=== PATIENT | male | born 1975 | race Two or more races ===

== ENCOUNTER 2020-04-09 14:27 | Inpatient (IN) | payer SELFPAY ==
[~2020-04-09] VITALS: Ht 172.7 cm; Wt 168.9 kg
[2020-04-09 15:08] LABS: Basophils # (auto) 0.1 10 ^3/uL (0-0.2); Basophils % (auto) 1.2 % (0.0-2.0); Eosinophils # (auto) 0.1 10 ^3/uL (0-0.8); Hemoglobin 14.5 g/dL (13.5-17.5); Lymphocytes # (auto) 1.9 10 ^3/uL (0.4-5.4); Lymphocytes % (auto) 20.3 % (10.0-50.0); Mean Corpuscular Hemoglobin 28.1 pg (28.0-32.0); Mean Corpuscular Hgb Conc. 32.3 g/dL (32.0-36.0); Monocytes # (auto) 0.9 10 ^3/uL (0-1.3); Neutrophils # (auto) 6.5 10 ^3/uL (1.6-8.6); Neutrophils % (auto) 68.5 % (37.0-80.0); Nucleated Red Blood Cells % 0.1 %; Platelet Count (auto) 286 10^3/uL (140-450); Red Blood Cells 5.17 10^6/uL (4.5-5.90); Red Cell Distribution Width 14.7 % (11.8-14.3); White Blood Cell 9.6 10^3/uL (4.4-10.8)
[2020-04-09] MEDS ORDERED: InsuLIN REG 1unit/0.01ml Soln (100units/ml) IV ONE (15:30)
[2020-04-09] MEDS ORDERED: SODIUM CHLORIDE 0.9% 1,000 ML IV SCH ×3 (15:30→21:30)
[2020-04-09] MEDS ORDERED: DEXTROSE (50%) 50ML SYRG IV PRN (15:30)
[2020-04-09 15:49] LABS: Albumin 3.1 g/dL (3.4-5.0); Anion Gap 1 (5-15); Blood Urea Nitrogen 19 mg/dL (7-18); Calcium 8.2 mg/dL (8.5-10.1); Carbon Dioxide 37 mmol/L (21-32); Chloride 102 mmol/L (98-107); Glucose 132 mg/dL (74-106); Potassium 4.1 mmol/L (3.5-5.1); Sodium 140 mmol/L (136-145)
[2020-04-09 15:54] LABS: Amylase 30 U/L (25-115); Lipase 99 U/L (73-393)
[2020-04-09 15:55] LABS: Magnesium 2.4 mg/dL (1.6-2.6); Phosphorus 4.5 mg/dL (2.5-4.90)
[2020-04-09 15:56] LABS: Alanine Aminotransferase 186 U/L (16-61); Alkaline Phosphatase 79 U/L (45-117); Aspartate Aminotransferase 90 U/L (15-37); BUN/Creatinine Ratio 21.8; Bilirubin, Total 0.7 mg/dL (0.2-1.0); GFR African American 124 mL/min; GFR Non-African American 102 mL/min; Total Protein 6.9 g/dL (6.4-8.2)
[2020-04-09] MEDS ORDERED: AZITHROMYCIN 500MG/ 250ML 250 ML IV ONE (16:30)
[2020-04-09] MEDS ORDERED: PIPERACILLIN-TAZOB 3.375GM 100 ML IV ONE (16:30)
[2020-04-09] MEDS ORDERED: ACCU-CHEK COMFORT CURVE STRIP VI SCH (16:30)
[2020-04-09] MEDS ORDERED: FUROSEMIDE 40 MG/4 ML VIAL IV ONE (17:15)
[2020-04-09] MEDS ORDERED: NITROGLYCERIN 0.4 MG SL TAB SL PRN (17:15)
[2020-04-09] MEDS ORDERED: ACETAMINOPHEN 500 MG TAB PO PRN (17:15)
[2020-04-09] MEDS ORDERED: MORPHINE SULF INJ 2 MG/ML SYRINGE 1ML IV PRN ×2 (17:15)
[2020-04-09] MEDS ORDERED: HYDROcodone-ACET 5/325MG TAB PO PRN (17:15)
[2020-04-09] MEDS ORDERED: hydrALAZINE HCL 20 MG/ML VL IV PRN (17:15)
[2020-04-09] MEDS ORDERED: ONDANSETRON HCL 4 MG/2 ML VIAL IV PRN (17:15)
[2020-04-09 19:10] LABS: Urine Bacteria NONE SEEN /hpf (None Seen); Urine Blood Negative /uL (Negative); Urine Mucus FEW (None Seen); Urine Specific Gravity 1.011 (1.001-1.035); Urine WBC 1 /hpf (0 - 3)
[2020-04-09] MEDS: METOPROLOL TARTRATE 25 MG TAB PO SCH ×2 (22:00→23:00)
[2020-04-09] MEDS: ATORVASTATIN 20 MG TAB PO SCH (22:00)
[2020-04-10 05:42] VITALS: BP 140/94
[2020-04-10 06:17] VITALS: BP 140/94
[2020-04-10 08:19] VITALS: BP 128/79
[2020-04-10] MEDS: ASPirin-EC 81 mg tab PO SCH (09:41)
[2020-04-10] MEDS: FAMOTIDINE 20 MG TAB PO SCH (09:41)
[2020-04-10] MEDS: LISINOPRIL 10 MG TAB PO SCH (09:42)
[2020-04-10 10:18] LABS: Basophils # (auto) 0 10 ^3/uL (0-0.2); Basophils % (auto) 0.6 % (0.0-2.0); Eosinophils # (auto) 0.1 10 ^3/uL (0-0.8); Eosinophils % (auto) 0.6 % (0.0-7.0); Hematocrit 45.9 % (41.0-53.0); Hemoglobin 14.8 g/dL (13.5-17.5); Lymphocytes # (auto) 0.8 10 ^3/uL (0.4-5.4); Lymphocytes % (auto) 8.8 % (10.0-50.0); Mean Corpuscular Hemoglobin 28.4 pg (28.0-32.0); Mean Corpuscular Hgb Conc. 32.3 g/dL (32.0-36.0); Monocytes # (auto) 0.6 10 ^3/uL (0-1.3); Monocytes % (auto) 6.4 % (0.0-12.0); Neutrophils # (auto) 7.2 10 ^3/uL (1.6-8.6); Neutrophils % (auto) 83.6 % (37.0-80.0); Nucleated Red Blood Cells % 0.1 %; Platelet Count (auto) 296 10^3/uL (140-450); Red Blood Cells 5.21 10^6/uL (4.5-5.90); Red Cell Distribution Width 14.8 % (11.8-14.3); White Blood Cell 8.7 10^3/uL (4.4-10.8)
[2020-04-10 10:42] LABS: Calcium 8.4 mg/dL (8.5-10.1)
[2020-04-10 10:43] LABS: BUN/Creatinine Ratio 15.5
[2020-04-10] MEDS ORDERED: POTASSIUM CHL 10 Meq TABLET PO ONE (13:00)
[2020-04-10] MEDS ORDERED: FUROSEMIDE 40 MG/4 ML VIAL IV ONE (13:00)
[2020-04-10 13:37] LABS: Alcohol, Urine < 3.0 mg/dL (0-10); Amphetamine Screen, Urine NEGATIVE (NEGATIVE); Barbiturate Scree,Urine NEGATIVE (NEGATIVE); Benzodiazephine Screen, Urine NEGATIVE (NEGATIVE); Cannabinoid Screen, Urine NEGATIVE (NEGATIVE); Cocaine Screen, Urine NEGATIVE (NEGATIVE); Opiate Scree,Urine NEGATIVE (NEGATIVE); Phencyclidine Screen, Urine NEGATIVE (NEGATIVE)
[2020-04-10 15:40] VITALS: BP 156/88
[2020-04-10] MEDS: FUROSEMIDE 40 MG/4 ML VIAL IV SCH (17:51)
[2020-04-10 18:01] LABS: Urine Bacteria NONE SEEN /hpf (None Seen); Urine Blood Negative /uL (Negative); Urine Mucus FEW (None Seen); Urine Specific Gravity 1.021 (1.001-1.035); Urine WBC 1 /hpf (0 - 3)
[2020-04-10] MEDS: ATORVASTATIN 20 MG TAB PO SCH (23:55)
[2020-04-10] MEDS: POTASSIUM CHL 10 Meq TABLET PO SCH (23:55)
[2020-04-10] MEDS: METOPROLOL TARTRATE 25 MG TAB PO SCH (23:55)
[2020-04-11 05:00] VITALS: BP 110/57
[2020-04-11] MEDS: FUROSEMIDE 40 MG/4 ML VIAL IV SCH ×2 (05:47→18:00)
[2020-04-11] MEDS: IPRATROPIUM BROM 0.5 MG/2.5ML INH SOL NEB PRN (07:33)
[2020-04-11] MEDS: ALBUTEROL SULF 2.5 MG/0.5ML(0.5%) NEB SOLN NEB PRN (07:33)
[2020-04-11 08:00] VITALS: BP 128/77
[2020-04-11] MEDS: ASPirin-EC 81 mg tab PO SCH (09:40)
[2020-04-11] MEDS: POTASSIUM CHL 10 Meq TABLET PO SCH ×2 (09:43→22:00)
[2020-04-11] MEDS: FAMOTIDINE 20 MG TAB PO SCH (09:44)
[2020-04-11] MEDS: METOPROLOL TARTRATE 25 MG TAB PO SCH ×2 (09:46→22:00)
[2020-04-11] MEDS: LISINOPRIL 10 MG TAB PO SCH (10:16)
[2020-04-11 16:00] VITALS: BP 103/53
[2020-04-11 21:38] VITALS: BP 129/75
[2020-04-11] MEDS: ATORVASTATIN 20 MG TAB PO SCH (22:00)
[2020-04-12 05:13] VITALS: BP 130/94
[2020-04-12 05:59] LABS: Calcium 8.3 mg/dL (8.5-10.1); Potassium 4.2 mmol/L (3.5-5.1)
[2020-04-12 06:03] LABS: BUN/Creatinine Ratio 16.9
[2020-04-12] MEDS: FUROSEMIDE 40 MG/4 ML VIAL IV SCH ×2 (06:04→18:07)
[2020-04-12 08:00] VITALS: BP 113/59
[2020-04-12] MEDS: POTASSIUM CHL 10 Meq TABLET PO SCH ×2 (09:31→22:35)
[2020-04-12] MEDS: ASPirin-EC 81 mg tab PO SCH (09:31)
[2020-04-12] MEDS: METOPROLOL TARTRATE 25 MG TAB PO SCH ×2 (09:32→22:36)
[2020-04-12] MEDS: FAMOTIDINE 20 MG TAB PO SCH (09:32)
[2020-04-12] MEDS: LISINOPRIL 10 MG TAB PO SCH (09:33)
[2020-04-12 17:00] VITALS: BP 119/60
[2020-04-12 22:00] VITALS: BP 120/78
[2020-04-12] MEDS: ATORVASTATIN 20 MG TAB PO SCH (22:36)
[2020-04-13 05:00] VITALS: BP 128/80
[2020-04-13] MEDS: FUROSEMIDE 40 MG/4 ML VIAL IV SCH ×2 (05:57→18:35)
[2020-04-13] MEDS: IPRATROPIUM BROM 0.5 MG/2.5ML INH SOL NEB PRN (06:30)
[2020-04-13] MEDS: ALBUTEROL SULF 2.5 MG/0.5ML(0.5%) NEB SOLN NEB PRN (06:30)
[2020-04-13 07:02] LABS: Basophils # (auto) 0 10 ^3/uL (0-0.2); Basophils % (auto) 0.6 % (0.0-2.0); Eosinophils # (auto) 0.3 10 ^3/uL (0-0.8); Eosinophils % (auto) 3.6 % (0.0-7.0); Hematocrit 45.1 % (41.0-53.0); Hemoglobin 14.8 g/dL (13.5-17.5); Lymphocytes # (auto) 1.4 10 ^3/uL (0.4-5.4); Lymphocytes % (auto) 19.9 % (10.0-50.0); Mean Corpuscular Hemoglobin 28.2 pg (28.0-32.0); Mean Corpuscular Hgb Conc. 32.9 g/dL (32.0-36.0); Mean Corpuscular Volume 85.9 fL (80.0-100.0); Monocytes # (auto) 0.7 10 ^3/uL (0-1.3); Monocytes % (auto) 10.1 % (0.0-12.0); Neutrophils # (auto) 4.7 10 ^3/uL (1.6-8.6); Neutrophils % (auto) 65.8 % (37.0-80.0); Nucleated Red Blood Cells % 0.1 %; Platelet Count (auto) 261 10^3/uL (140-450); Red Blood Cells 5.26 10^6/uL (4.5-5.90); Red Cell Distribution Width 14.1 % (11.8-14.3); White Blood Cell 7.2 10^3/uL (4.4-10.8)
[2020-04-13 07:30] VITALS: BP 113/66
[2020-04-13 07:35] LABS: Potassium 3.6 mmol/L (3.5-5.1)
[2020-04-13 07:37] LABS: BUN/Creatinine Ratio 16.3
[2020-04-13] MEDS: POTASSIUM CHL 10 Meq TABLET PO SCH ×2 (09:44→22:34)
[2020-04-13] MEDS: ASPirin-EC 81 mg tab PO SCH (09:44)
[2020-04-13] MEDS: FAMOTIDINE 20 MG TAB PO SCH (09:45)
[2020-04-13] MEDS: METOPROLOL TARTRATE 25 MG TAB PO SCH ×2 (09:47→22:35)
[2020-04-13] MEDS: LISINOPRIL 10 MG TAB PO SCH (09:48)
[2020-04-13 16:48] VITALS: BP 109/76
[2020-04-13 22:00] VITALS: BP 117/74
[2020-04-13] MEDS: ATORVASTATIN 20 MG TAB PO SCH (22:34)
[2020-04-14 05:00] VITALS: BP 138/68
[2020-04-14] MEDS: FUROSEMIDE 40 MG/4 ML VIAL IV SCH (05:42)
[2020-04-14] MEDS: ALBUTEROL SULF 2.5 MG/0.5ML(0.5%) NEB SOLN NEB PRN (06:35)
[2020-04-14] MEDS: IPRATROPIUM BROM 0.5 MG/2.5ML INH SOL NEB PRN (06:35)
[2020-04-14 08:00] VITALS: BP 135/79
[2020-04-14] MEDS: POTASSIUM CHL 10 Meq TABLET PO SCH (11:12)
[2020-04-14] MEDS: ASPirin-EC 81 mg tab PO SCH (11:12)
[2020-04-14] MEDS: METOPROLOL TARTRATE 25 MG TAB PO SCH (11:13)
[2020-04-14] MEDS: FAMOTIDINE 20 MG TAB PO SCH (11:14)
[2020-04-14] MEDS: LISINOPRIL 10 MG TAB PO SCH (11:14)
[2020-04-14 11:59] VITALS: BP 135/79
[2020-04-14 16:00] VITALS: BP 118/71
== END 2020-04-14 18:05 | disposition home or self-care (01) | DRG 189 ==
LOC: ER 14:27 → TELE 14:28 → TELE-CENTR 04-10 03:54
PROVIDERS: ADMIT Nurse Practitioner Acute Care; ATTEND Internal Medicine
PROC: 5A09357 Assistance with Respiratory Ventilation, Less than 24 Consecutive Hours, Continuous Positive Airway Pressure (ICD-10-PCS; principal; 2020-04-10)
PROC: 5A09357 Assistance with Respiratory Ventilation, Less than 24 Consecutive Hours, Continuous Positive Airway Pressure (ICD-10-PCS; 2020-04-11)
PROC: 5A09357 Assistance with Respiratory Ventilation, Less than 24 Consecutive Hours, Continuous Positive Airway Pressure (ICD-10-PCS; 2020-04-12)
PROC: 5A09357 Assistance with Respiratory Ventilation, Less than 24 Consecutive Hours, Continuous Positive Airway Pressure (ICD-10-PCS; 2020-04-13)
DX: J96.01 Acute respiratory failure with hypoxia (principal); N17.0 Acute kidney failure with tubular necrosis; E66.2 Morbid (severe) obesity with alveolar hypoventilation; E87.4 Mixed disorder of acid-base balance; Z68.43 Body mass index [BMI] 50.0-59.9, adult; J96.02 Acute respiratory failure with hypercapnia; I12.9 Hypertensive chronic kidney disease with stage 1 through stage 4 chronic kidney disease, or unspecified chronic kidney disease; E11.22 Type 2 diabetes mellitus with diabetic chronic kidney disease; E11.65 Type 2 diabetes mellitus with hyperglycemia; Z20.822 Contact with and (suspected) exposure to COVID-19; E88.09 Other disorders of plasma-protein metabolism, not elsewhere classified; N18.9 Chronic kidney disease, unspecified; Z83.3 Family history of diabetes mellitus; Z91.14 Patient's other noncompliance with medication regimen
CPT/HCPCS: 36415; 36600; 71045; 74176; 80048; 80053; 80061; 80307; 81001; 82010; 82150; 82805; 82962; 83036; 83605; 83690; 83735; 83880; 83930; 84100; 84443; 84484; 85025; 85379; 86141; 87040; 87426; 93005; 93306; 94640; 94660; 96365; 96368; 96375; 97163; 99291; G0378; J2543

== ENCOUNTER 2020-08-03 15:57 | Emergency (ER) | payer MEDICAID ==
[~2020-08-03] VITALS: Ht 170.2 cm; Wt 163.3 kg
[2020-08-03 17:17] LABS: Basophils # (auto) 0.1 10 ^3/uL (0-0.2); Basophils % (auto) 1.1 % (0.0-2.0); Eosinophils # (auto) 0.2 10 ^3/uL (0-0.8); Eosinophils % (auto) 2.1 % (0.0-7.0); Hematocrit 46.4 % (41.0-53.0); Hemoglobin 15.2 g/dL (13.5-17.5); Lymphocytes # (auto) 2.3 10 ^3/uL (0.4-5.4); Lymphocytes % (auto) 20.3 % (10.0-50.0); Mean Corpuscular Hemoglobin 28.8 pg (28.0-32.0); Mean Corpuscular Hgb Conc. 32.8 g/dL (32.0-36.0); Mean Corpuscular Volume 87.9 fL (80.0-100.0); Monocytes # (auto) 0.7 10 ^3/uL (0-1.3); Monocytes % (auto) 6.2 % (0.0-12.0); Neutrophils % (auto) 70.3 % (37.0-80.0); Nucleated Red Blood Cells % 0.2 %; Platelet Count (auto) 243 10^3/uL (140-450); Red Blood Cells 5.28 10^6/uL (4.5-5.90); Red Cell Distribution Width 16.5 % (11.8-14.3); White Blood Cell 11.4 10^3/uL (4.4-10.8)
[2020-08-03 17:24] LABS: Albumin 3.5 g/dL (3.4-5.0); Anion Gap 6 (5-15); Blood Urea Nitrogen 10 mg/dL (7-18); Carbon Dioxide 34 mmol/L (21-32); Chloride 102 mmol/L (98-107); Glucose 152 mg/dL (74-106); Potassium 4.1 mmol/L (3.5-5.1); Sodium 142 mmol/L (136-145)
[2020-08-03 17:30] LABS: Alanine Aminotransferase 33 U/L (16-61); Alkaline Phosphatase 80 U/L (45-117); Aspartate Aminotransferase 17 U/L (15-37); BUN/Creatinine Ratio 10.4; Bilirubin, Total 0.2 mg/dL (0.2-1.0); GFR African American 110 mL/min; GFR Non-African American 91 mL/min; Total Protein 7.7 g/dL (6.4-8.2)
[2020-08-03] MEDS ORDERED: cloNIDine HCL 0.1 MG TAB PO ONE (20:45)
[2020-08-03 21:42] VITALS: BP 142/88
== END 2020-08-03 21:48 | disposition home or self-care (01) ==
LOC: EDBD 15:57 → ER 15:57
DX: E66.2 Morbid (severe) obesity with alveolar hypoventilation (principal); I10 Essential (primary) hypertension; Z68.43 Body mass index [BMI] 50.0-59.9, adult
CPT/HCPCS: 36415; 36600; 71045; 80053; 82805; 84484; 85025; 93005